=== PATIENT | female | born 1980 | race African-American/Black ===

== ENCOUNTER 2019-11-25 00:01 | Emergency (ER) | payer MEDICAID ==
[~2019-11-25] VITALS: Ht 160 cm; Wt 50.0 kg
[2019-11-25 08:30] LABS: BASOPHILS % 0.2 % (0.0-2.0); EOSINOPHILS % 1.3 % (0.0-5.0); HEMATOCRIT. 35.4 % (36.0-48.0); HEMOGLOBIN. 11.5 g/dL (12.0-16.0); MEAN CORPUSCULAR HEMOGLOBIN 26.6 pg (28.0-32.0); MEAN CORPUSCULAR VOLUME 81.5 fL (81.0-99.0); MONOCYTES % 9.9 % (2.0-8.0); NEUTROPHILS % 41.6 % (40.0-76.0); PLATELET 248 x1000/uL (130-400); RED BLOOD CELL COUNT 4.34 mill/uL (4.2-5.4); RED CELL DISTRIBUTION WIDTH 14.2 % (11.6-14.6)
[2019-11-25 08:35] LABS: CHLORIDE 107 mEq/L (98-107)
[2019-11-25 09:02] VITALS: BP 130/80
== END 2019-11-25 09:10 | disposition home or self-care (01) ==
LOC: ER 00:43
DX: R06.00 Dyspnea, unspecified (principal); R20.2 Paresthesia of skin; Z98.51 Tubal ligation status
CPT/HCPCS: 36415; 71045; 80053; 81025; 85025; 93005; 99284